=== PATIENT | male | born 1985 | race Caucasian/White ===

== ENCOUNTER 2017-12-14 03:50 | Emergency (ER) | payer MEDICAID ==
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
== END 2017-12-14 04:20 | disposition home or self-care (01) ==
LOC: MW.ED 03:50
DX: Z02.89 Encounter for other administrative examinations (principal)
CPT/HCPCS: 99282